=== PATIENT | female | born 1955 | race Hispanic/Latino ===

== ENCOUNTER 2017-06-15 12:47 | Emergency (ER) | payer SELFPAY ==
[~2017-06-15] VITALS: Ht 165.1 cm; Wt 81.6 kg
[~2017-06-15 12:47] MED LIST: ASPIRIN325 MG PO; GLIMEPIRIDE4 MG PO; LORAZEPAM1 MG PO; METFORMIN HCL500 MG PO; PRAVASTATIN SOD10 MG PO; SYNTHROID50 MCG PO
[2017-06-15] MEDS ORDERED: CLONIDINE HCL 0.1 MG TAB PO ONE (21:30)
[2017-06-15] MEDS ORDERED: LORAZEPAM 0.5 MG TAB PO ONE (21:45)
[2017-06-15 22:13] LABS: BASOPHILS % 0.2 % (0.0-1.0); EOSINOPHILS # (AUTO) 0.1 (0.0-0.4); HEMATOCRIT 42.4 % (34.2-44.1); HEMOGLOBIN 14.4 g/dL (12.0-16.0); LYMPHOCYTES # (AUTO) 3.2 (1.0-3.2); LYMPHOCYTES % 38.2 % (18.0-39.1); MEAN CORPUSCULAR HEMOGLOBIN 29.1 pg (28-32); MEAN CORPUSCULAR VOLUME 85.8 fL (81-99); MONOCYTES # (AUTO) 0.5 (0.2-0.8); MONOCYTES % 5.5 % (4.4-11.3); NEUTROPHILS # (AUTO) 4.6 (2.1-6.9); NEUTROPHILS % 54.7 % (38.7-80.0); PLATELET COUNT 247 x10e3/uL (140-360); RED BLOOD COUNT 4.94 x10e6/uL (3.6-5.1); RED CELL DISTRIBUTION WIDTH 13.2 % (11.7-14.4)
[2017-06-15 22:29] LABS: ALANINE AMINOTRANSFERASE 39 IU/L (0-55); ALBUMIN 4.1 g/dL (3.5-5.0); ALKALINE PHOSPHATASE 88 IU/L (40-150); ANION GAP 15.9 mmol/L (8-16); BLOOD UREA NITROGEN 12 mg/dL (7-26); BUN/CREATININE RATIO 14 (6-25); CARBON DIOXIDE 22 mmol/L (22-29); CHLORIDE 103 mmol/L (98-107); CREATINE KINASE 75 IU/L (29-168); CREATININE, SERUM 0.87 mg/dL (0.57-1.11); EST GLOMERULAR FILTRATION RATE > 60 ML/MIN (60-); GLUCOSE 220 mg/dL (74-118); POTASSIUM 3.9 mmol/L (3.5-5.1); SODIUM 137 mmol/L (136-145)
[2017-06-15 22:35] LABS: TROPONIN I 0.006 ng/mL (0-0.300)
--- NOTE | 2017-06-15 22:59 | Diagnostic Imaging Report ---
CHEST SINGLE (PORTABLE), 06/15/2017 9:23 PM Technique: CHEST SINGLE (PORTABLE) Comparison: None available. Clinical history: Chest discomfort Findings: Unremarkable appearance of the heart, mediastinum, lungs and pleural spaces. Impression: 1. Lines/Tubes: None 2. No acute abnormality. Signed by: Dr Argentina Barcenas MD on 06/15/2017 10:56 PM
== END 2017-06-16 00:53 | disposition home or self-care (01) ==
LOC: ER 12:47
DX: I10 Essential (primary) hypertension (principal); R07.89 Other chest pain; E11.9 Type 2 diabetes mellitus without complications; E03.9 Hypothyroidism, unspecified; I25.10 Atherosclerotic heart disease of native coronary artery without angina pectoris; F41.9 Anxiety disorder, unspecified; Z87.891 Personal history of nicotine dependence
CPT/HCPCS: 36415; 71010; 80053; 82550; 82553; 84484; 85025; 93005; 99284